=== PATIENT | male | born 1965 | race Hispanic/Latino ===

== ENCOUNTER 2023-08-10 13:34 | Inpatient (IN) | payer BC ==
[~2023-08-10] VITALS: Ht 170.2 cm; Wt 88.9 kg
[2023-08-10 14:07] LABS: BASOPHILS # (AUTO) 0.02 K/uL (0.00-0.20); BASOPHILS % (AUTO) 0.2 % (0.0-5.0); EOSINOPHILS # (AUTO) 0.15 K/uL (0.00-0.70); EOSINOPHILS % (AUTO) 1.6 % (0.0-8.0); HEMATOCRIT 44.5 % (42-54); IMMATURE GRANULOCYTE ABSOLUTE 0.02 K/uL (0-1); LYMPHOCYTES # (AUTO) 1.3 K/uL (1.0-4.8); LYMPHOCYTES % (AUTO) 13.9 % (21.0-51.0); MEAN CORPUSCULAR VOLUME 87.8 fL (79-99); MONOCYTES # (AUTO) 0.7 K/uL (0.1-1.0); MONOCYTES % (AUTO) 7.9 % (3.0-13.0); NEUTROPHILS % (AUTO) 76.2 % (40.0-77.0); PLATELET COUNT (AUTO) 263 K/uL (130-400); RED BLOOD CELL COUNT(AUTO) 5.07 MIL/uL (4.50-6.20); RED CELL DISTRIBUTION WIDTH 12.8 % (11.0-15.5); WHITE BLOOD COUNT (AUTO) 9.2 K/uL (4.8-10.8)
[2023-08-10 14:27] LABS: ALBUMIN 2.6 g/dL (3.5-5.0); BILIRUBIN,TOTAL 0.6 mg/dL (0.2-1.0); POTASSIUM 4.3 mmol/L (3.5-5.1); TOTAL PROTEIN, SERUM 6.9 g/dL (6.0-8.3)
[2023-08-10] MEDS ORDERED: FUROSEMIDE 40MG VIAL IV ONE (14:30)
[2023-08-10] MEDS ORDERED: NITROGLYCERIN 1GM OINT 1 INCH/1GM TD ONE (14:30)
[2023-08-10] MEDS ORDERED: ALBUTEROL 0.083% 2.5 MG/3 ML INH IH ONE (14:30)
[2023-08-10 14:42] LABS: B-TYPE NATRIURETIC PEPTIDE 857 pg/mL (0-100)
[2023-08-10 14:45] VITALS: PULSE 102; RESP 18
[2023-08-10 14:50] LABS: ABG BASE EXCESS 4.1 mmol/L (-2.0-3.0); ABG HCO3 28.4 mmol/L (21.0-28.0); ABG OXYGEN SATURATION 95.8 % (95.0-99.0); ABG PCO2 41 mmHg (35-48); ABG PH 7.454 (7.35-7.450); VENT MODE, BG RA (ROOM AIR)
[2023-08-10] MEDS ORDERED: INSULIN HUMULIN R 100 UNIT/ML 3ML SQ ONE (15:00)
[2023-08-10 17:17] VITALS: PULSE 102; RESP 20; O2SAT 96
[2023-08-10 17:18] LABS: INR 1.07 (0.85-1.15); PROTHROMBIN TIME 12.4 SEC (9.6-11.6)
[2023-08-10 17:20] LABS: PARTIAL THROMBOPLASTIN TIME 30.9 SEC (26.3-35.5)
[2023-08-10 17:39] LABS: MAGNESIUM 1.5 mg/dL (1.80-2.40)
[2023-08-10] MEDS ORDERED: GLUCAGON 1MG KIT 1 MG ML IM PRN (18:00)
[2023-08-10] MEDS ORDERED: INSULIN HUMULIN R 100 UNIT/ML 3ML SQ SCH (18:00)
[2023-08-10] MEDS ORDERED: DEXTROSE 50%-WATER 50 ML DISP.SYRIN IV PRN (18:00)
[2023-08-10 18:10] LABS: THYROID STIMULATING HORMONE 1.41 uIU/mL (0.36-3.74)
[2023-08-10] MEDS ORDERED: SODIUM CHLORIDE 3% FOR INHALATION 4 ML/AMP VIAL.NEB IH ONE ×2 (18:19→23:05)
[2023-08-10] MEDS ORDERED: MAGNESIUM 2GM PREMIX 50ML 50 ML IV ONE (18:23)
[2023-08-10] MEDS: CEFTRIAXONE 1G VIAL IVPB SCH (18:28)
[2023-08-10] MEDS: ASPIRIN 81MG CHEW TAB PO SCH (18:28)
[2023-08-10] MEDS: MAGNESIUM 2GM PREMIX 50ML 50 ML IV SCH (18:41)
[2023-08-10 19:00] VITALS: PULSE 109; RESP 19; O2SAT 98
[2023-08-10] MEDS: BUDESONIDE 0.5 MG/2 ML INH IH SCH (19:00)
[2023-08-10] MEDS ORDERED: IPRATROPIUM 0.5 MG/2.5 ML INH IH PRN (19:00)
[2023-08-10 19:43] LABS: SARS-CoV-2, RNA, NAAT NEGATIVE SARS CoV-2 (NEGATIVE)
[2023-08-10 19:52] LABS: INFLUENZA TYPE A Negative For Type A (NEGATIVE); INFLUENZA TYPE B Negative For Type B (NEGATIVE)
[2023-08-10] MEDS: FAMOTIDINE 20MG TAB PO SCH (20:25)
[2023-08-10] MEDS: ATORVASTATIN 40 MG TABLET PO SCH (20:25)
[2023-08-10] MEDS: FUROSEMIDE 40MG VIAL IV SCH (20:26)
[2023-08-10] MEDS: INSULIN HUMULIN R 100 UNIT/ML 3ML SQ SCH (20:56)
[2023-08-10] MEDS ORDERED: INSULIN GLARGINE 100 UNITS/ML 10 ML VIAL SQ SCH (21:00)
[2023-08-10 21:41] LABS: CREATININE 0.9 mg/dL (0.5-1.5); POTASSIUM 3.9 mmol/L (3.5-5.1)
[2023-08-10 21:48] VITALS: BP 115/80; PULSE 111; RESP 20
[2023-08-10] MEDS ORDERED: SITA1TAB6 PO (22:18)
[2023-08-10] MEDS ORDERED: ATOR20TA65 PO (22:18)
[2023-08-10] MEDS ORDERED: PIOG45TA64 PO (22:18)
[2023-08-10] MEDS ORDERED: GEMF600T89 PO (22:18)
[2023-08-10] MEDS ORDERED: LISI1TAB51 PO (22:18)
[2023-08-10] MEDS ORDERED: FAMO40TA7 PO (22:18)
[2023-08-10] MEDS ORDERED: LIRA0.6P SQ (22:18)
[2023-08-10 22:32] VITALS: O2SAT 98
[2023-08-10] MEDS ORDERED: POTASSIUM CHLORIDE 20MEQ/100ML 100 ML IV PRN (23:00)
[2023-08-10] MEDS ORDERED: POTASSIUM CHLORIDE 10% ELIXIR 20 MEQ/15 ML UDCUP PO PRN (23:00)
[2023-08-10 23:24] VITALS: BP 107/74; PULSE 115; RESP 18
[2023-08-11] VITALS (11 sets, daily range): BP systolic 95–127; BP diastolic 63–90; PULSE 81–113; RESP 17–22; O2SAT 96–97
[2023-08-11 04:56] LABS: BASOPHILS # (AUTO) 0.04 K/uL (0.00-0.20); BASOPHILS % (AUTO) 0.4 % (0.0-5.0); EOSINOPHILS % (AUTO) 3.2 % (0.0-8.0); HEMATOCRIT 41.1 % (42-54); IMMATURE GRANULOCYTE ABSOLUTE 0.03 K/uL (0-1); LYMPHOCYTES # (AUTO) 1.7 K/uL (1.0-4.8); LYMPHOCYTES % (AUTO) 18.2 % (21.0-51.0); MEAN CORPUSCULAR HEMOGLOBIN 28.6 pg (27.0-33.0); MEAN CORPUSCULAR HGB CONC 31.6 g/dL (32.0-36.0); MEAN CORPUSCULAR VOLUME 90.3 fL (79-99); MONOCYTES # (AUTO) 0.8 K/uL (0.1-1.0); NEUTROPHILS # (AUTO) 6.6 K/uL (1.8-7.7); NEUTROPHILS % (AUTO) 69.9 % (40.0-77.0); PLATELET COUNT (AUTO) 250 K/uL (130-400); RED BLOOD CELL COUNT(AUTO) 4.55 MIL/uL (4.50-6.20); RED CELL DISTRIBUTION WIDTH 12.8 % (11.0-15.5); WHITE BLOOD COUNT (AUTO) 9.5 K/uL (4.8-10.8)
[2023-08-11 05:10] LABS: ALBUMIN 2.3 g/dL (3.5-5.0); BILIRUBIN,TOTAL 0.3 mg/dL (0.2-1.0); MAGNESIUM 1.7 mg/dL (1.80-2.40); POTASSIUM 4.2 mmol/L (3.5-5.1); TOTAL PROTEIN, SERUM 6.4 g/dL (6.0-8.3)
[2023-08-11 05:47] LABS: B-TYPE NATRIURETIC PEPTIDE 563 pg/mL (0-100)
[2023-08-11] MEDS: CEFTRIAXONE 1G VIAL IVPB SCH ×2 (06:26→16:48)
[2023-08-11] MEDS: INSULIN HUMULIN R 100 UNIT/ML 3ML SQ SCH ×4 (06:26→20:26)
[2023-08-11] MEDS: BUDESONIDE 0.5 MG/2 ML INH IH SCH ×2 (07:17→19:00)
[2023-08-11] MEDS: FAMOTIDINE 20MG TAB PO SCH ×2 (09:57→20:22)
[2023-08-11] MEDS: Vitamin B Complex/Vit C/Folic Acid PO SCH (09:57)
[2023-08-11] MEDS: LINAGLIPTIN 5 MG TABLET PO SCH (09:57)
[2023-08-11] MEDS: LISINOPRIL 5 MG TABLET PO SCH (09:58)
[2023-08-11] MEDS: KCL 20 MEQ ERTAB PO SCH (09:58)
[2023-08-11] MEDS: DOXYCYCLINE HYCLATE 100 MG TABLET PO SCH ×2 (09:58→20:22)
[2023-08-11] MEDS: FUROSEMIDE 40MG VIAL IV SCH ×2 (09:59→20:24)
[2023-08-11] MEDS: ENOXAPARIN SODIUM 40 MG/0.4 ML SYRINGE SQ SCH (09:59)
[2023-08-11] MEDS: INSULIN GLARGINE 100 UNITS/ML 10 ML VIAL SQ SCH ×2 (10:09→20:25)
[2023-08-11] MEDS: ASPIRIN 81MG CHEW TAB PO SCH (16:49)
[2023-08-11] MEDS: ATORVASTATIN 40 MG TABLET PO SCH (20:22)
[2023-08-12] VITALS (9 sets, daily range): BP systolic 99–109; BP diastolic 66–78; PULSE 87–108; RESP 16–22; O2SAT 94–99
[2023-08-12] MEDS: CEFTRIAXONE 1G VIAL IVPB SCH (04:58)
[2023-08-12 05:16] LABS: BASOPHILS # (AUTO) 0.03 K/uL (0.00-0.20); BASOPHILS % (AUTO) 0.3 % (0.0-5.0); EOSINOPHILS # (AUTO) 0.41 K/uL (0.00-0.70); EOSINOPHILS % (AUTO) 4.7 % (0.0-8.0); HEMATOCRIT 42.8 % (42-54); IMMATURE GRANULOCYTE ABSOLUTE 0.03 K/uL (0-1); LYMPHOCYTES # (AUTO) 1.9 K/uL (1.0-4.8); MEAN CORPUSCULAR HEMOGLOBIN 28.8 pg (27.0-33.0); MEAN CORPUSCULAR HGB CONC 31.3 g/dL (32.0-36.0); MONOCYTES # (AUTO) 0.6 K/uL (0.1-1.0); MONOCYTES % (AUTO) 7.3 % (3.0-13.0); NEUTROPHILS # (AUTO) 5.7 K/uL (1.8-7.7); NEUTROPHILS % (AUTO) 65.4 % (40.0-77.0); PLATELET COUNT (AUTO) 258 K/uL (130-400); RED BLOOD CELL COUNT(AUTO) 4.65 MIL/uL (4.50-6.20); WHITE BLOOD COUNT (AUTO) 8.8 K/uL (4.8-10.8)
[2023-08-12 05:31] LABS: MAGNESIUM 1.7 mg/dL (1.80-2.40); POTASSIUM 4.1 mmol/L (3.5-5.1)
[2023-08-12] MEDS: MAGNESIUM 2GM PREMIX 50ML 50 ML IV SCH (05:46)
[2023-08-12 05:48] LABS: B-TYPE NATRIURETIC PEPTIDE 627 pg/mL (0-100)
[2023-08-12] MEDS: INSULIN HUMULIN R 100 UNIT/ML 3ML SQ SCH ×3 (05:48→17:29)
[2023-08-12] MEDS: BUDESONIDE 0.5 MG/2 ML INH IH SCH ×2 (06:26→18:30)
[2023-08-12] MEDS: INSULIN GLARGINE 100 UNITS/ML 10 ML VIAL SQ SCH ×2 (10:43→20:36)
[2023-08-12] MEDS: LINAGLIPTIN 5 MG TABLET PO SCH (10:44)
[2023-08-12] MEDS: Vitamin B Complex/Vit C/Folic Acid PO SCH (10:44)
[2023-08-12] MEDS: FUROSEMIDE 40MG VIAL IV SCH (10:44)
[2023-08-12] MEDS: KCL 20 MEQ ERTAB PO SCH (10:44)
[2023-08-12] MEDS: FAMOTIDINE 20MG TAB PO SCH ×2 (10:45→20:35)
[2023-08-12] MEDS: DOXYCYCLINE HYCLATE 100 MG TABLET PO SCH ×2 (10:45→20:35)
[2023-08-12] MEDS: LISINOPRIL 5 MG TABLET PO SCH (10:45)
[2023-08-12] MEDS: ENOXAPARIN SODIUM 40 MG/0.4 ML SYRINGE SQ SCH (10:46)
[2023-08-12] MEDS ORDERED: HONE15GE TP (12:39)
[2023-08-12] MEDS: ASPIRIN 81MG CHEW TAB PO SCH (17:30)
[2023-08-12] MEDS: FUROSEMIDE 40 MG TABLET PO SCH (17:30)
[2023-08-12] MEDS: CEFTRIAXONE 2GM VIAL IVPB SCH (17:30)
[2023-08-12] MEDS: ATORVASTATIN 40 MG TABLET PO SCH (20:35)
[2023-08-12] MEDS ORDERED: INSULIN HUMULIN R 100 UNIT/ML 3ML SQ SCH (21:00)
[2023-08-13] VITALS (11 sets, daily range): BP systolic 104–114; BP diastolic 70–79; PULSE 78–108; RESP 16–20; O2SAT 96–98
[2023-08-13 04:31] LABS: BASOPHILS # (AUTO) 0.04 K/uL (0.00-0.20); BASOPHILS % (AUTO) 0.5 % (0.0-5.0); EOSINOPHILS # (AUTO) 0.36 K/uL (0.00-0.70); EOSINOPHILS % (AUTO) 4.1 % (0.0-8.0); HEMATOCRIT 42.5 % (42-54); IMMATURE GRANULOCYTE ABSOLUTE 0.04 K/uL (0-1); LYMPHOCYTES # (AUTO) 2.2 K/uL (1.0-4.8); LYMPHOCYTES % (AUTO) 25.5 % (21.0-51.0); MEAN CORPUSCULAR HEMOGLOBIN 29.1 pg (27.0-33.0); MEAN CORPUSCULAR HGB CONC 32.2 g/dL (32.0-36.0); MEAN CORPUSCULAR VOLUME 90.2 fL (79-99); MONOCYTES # (AUTO) 0.8 K/uL (0.1-1.0); MONOCYTES % (AUTO) 9.3 % (3.0-13.0); NEUTROPHILS # (AUTO) 5.2 K/uL (1.8-7.7); NEUTROPHILS % (AUTO) 60.1 % (40.0-77.0); PLATELET COUNT (AUTO) 273 K/uL (130-400); RED BLOOD CELL COUNT(AUTO) 4.71 MIL/uL (4.50-6.20); RED CELL DISTRIBUTION WIDTH 13.1 % (11.0-15.5); WHITE BLOOD COUNT (AUTO) 8.7 K/uL (4.8-10.8)
[2023-08-13 04:58] LABS: ALBUMIN 2.6 g/dL (3.5-5.0); BILIRUBIN,TOTAL 0.3 mg/dL (0.2-1.0); MAGNESIUM 1.9 mg/dL (1.80-2.40); POTASSIUM 3.9 mmol/L (3.5-5.1); TOTAL PROTEIN, SERUM 6.8 g/dL (6.0-8.3)
[2023-08-13] MEDS: INSULIN HUMULIN R 100 UNIT/ML 3ML SQ SCH ×7 (06:29→21:00)
[2023-08-13] MEDS: BUDESONIDE 0.5 MG/2 ML INH IH SCH ×2 (06:40→18:43)
[2023-08-13] MEDS ORDERED: REGADENOSON 0.4 MG/5 ML PF SYG IVP ONE (07:00)
[2023-08-13] MEDS: Vitamin B Complex/Vit C/Folic Acid PO SCH (09:36)
[2023-08-13] MEDS: LINAGLIPTIN 5 MG TABLET PO SCH (09:36)
[2023-08-13] MEDS: KCL 20 MEQ ERTAB PO SCH (09:37)
[2023-08-13] MEDS: FAMOTIDINE 20MG TAB PO SCH ×2 (09:37→21:30)
[2023-08-13] MEDS: LISINOPRIL 5 MG TABLET PO SCH (09:37)
[2023-08-13] MEDS: DOXYCYCLINE HYCLATE 100 MG TABLET PO SCH ×2 (09:37→21:30)
[2023-08-13] MEDS: FUROSEMIDE 40 MG TABLET PO SCH (09:37)
[2023-08-13] MEDS: ENOXAPARIN SODIUM 40 MG/0.4 ML SYRINGE SQ SCH (09:38)
[2023-08-13] MEDS: INSULIN GLARGINE 100 UNITS/ML 10 ML VIAL SQ SCH ×2 (09:39→21:32)
[2023-08-13] MEDS: PHARMACY COMMUNICATION MISC SCH ×13 (11:30→23:30)
[2023-08-13] MEDS: SPIRONOLACTONE 25 MG TAB PO SCH (16:06)
[2023-08-13] MEDS ORDERED: FUROSEMIDE 40MG VIAL IV ONE (16:30)
[2023-08-13] MEDS ORDERED: FUROSEMIDE 40MG VIAL IV SCH (17:00)
[2023-08-13] MEDS: ASPIRIN 81MG CHEW TAB PO SCH (17:37)
[2023-08-13] MEDS: CEFTRIAXONE 2GM VIAL IVPB SCH (17:38)
[2023-08-13] MEDS: ATORVASTATIN 40 MG TABLET PO SCH (21:30)
[2023-08-13] MEDS: CARVEDILOL 3.125 MG TABLET PO SCH (21:31)
[2023-08-13] MEDS: FUROSEMIDE 40MG VIAL IV SCH (21:31)
[2023-08-14] VITALS (13 sets, daily range): BP systolic 100–128; BP diastolic 58–77; PULSE 77–110; RESP 16–20; O2SAT 95–97
[2023-08-14] MEDS: PHARMACY COMMUNICATION MISC SCH ×8 (00:30→21:00)
[2023-08-14] MEDS: INSULIN HUMULIN R 100 UNIT/ML 3ML SQ SCH ×7 (05:50→21:41)
[2023-08-14 06:28] LABS: CREATININE 0.9 mg/dL (0.5-1.5); MAGNESIUM 1.8 mg/dL (1.80-2.40); POTASSIUM 3.8 mmol/L (3.5-5.1)
[2023-08-14] MEDS: BUDESONIDE 0.5 MG/2 ML INH IH SCH ×2 (06:29→18:29)
[2023-08-14] MEDS: MAGNESIUM 2GM PREMIX 50ML 50 ML IV SCH (06:37)
[2023-08-14 07:08] LABS: BASOPHILS # (AUTO) 0.03 K/uL (0.00-0.20); BASOPHILS % (AUTO) 0.4 % (0.0-5.0); EOSINOPHILS # (AUTO) 0.32 K/uL (0.00-0.70); HEMATOCRIT 44.1 % (42-54); IMMATURE GRANULOCYTE ABSOLUTE 0.02 K/uL (0-1); LYMPHOCYTES # (AUTO) 1.8 K/uL (1.0-4.8); LYMPHOCYTES % (AUTO) 22.4 % (21.0-51.0); MEAN CORPUSCULAR HEMOGLOBIN 28.8 pg (27.0-33.0); MEAN CORPUSCULAR HGB CONC 31.7 g/dL (32.0-36.0); MEAN CORPUSCULAR VOLUME 90.7 fL (79-99); MONOCYTES # (AUTO) 0.6 K/uL (0.1-1.0); MONOCYTES % (AUTO) 7.6 % (3.0-13.0); NEUTROPHILS # (AUTO) 5.2 K/uL (1.8-7.7); NEUTROPHILS % (AUTO) 65.3 % (40.0-77.0); PLATELET COUNT (AUTO) 252 K/uL (130-400); RED BLOOD CELL COUNT(AUTO) 4.86 MIL/uL (4.50-6.20); RED CELL DISTRIBUTION WIDTH 13.2 % (11.0-15.5)
[2023-08-14 07:18] LABS: INR 1.07 (0.85-1.15); POTASSIUM 3.9 mmol/L (3.5-5.1); PROTHROMBIN TIME 12.4 SEC (9.6-11.6)
[2023-08-14 07:19] LABS: PARTIAL THROMBOPLASTIN TIME 31.5 SEC (26.3-35.5)
[2023-08-14 07:33] LABS: ALBUMIN 2.7 g/dL (3.5-5.0); BILIRUBIN,TOTAL 0.3 mg/dL (0.2-1.0); TOTAL PROTEIN, SERUM 6.9 g/dL (6.0-8.3)
[2023-08-14] MEDS: FAMOTIDINE 20MG TAB PO SCH ×2 (09:00→21:35)
[2023-08-14] MEDS: KCL 20 MEQ ERTAB PO SCH (09:00)
[2023-08-14] MEDS: DOXYCYCLINE HYCLATE 100 MG TABLET PO SCH ×2 (09:00→21:35)
[2023-08-14] MEDS: ENOXAPARIN SODIUM 40 MG/0.4 ML SYRINGE SQ SCH (09:00)
[2023-08-14] MEDS: Vitamin B Complex/Vit C/Folic Acid PO SCH (09:00)
[2023-08-14] MEDS: INSULIN GLARGINE 100 UNITS/ML 10 ML VIAL SQ SCH ×2 (09:00→21:40)
[2023-08-14] MEDS: CARVEDILOL 3.125 MG TABLET PO SCH ×2 (09:00→21:35)
[2023-08-14] MEDS: LINAGLIPTIN 5 MG TABLET PO SCH (09:00)
[2023-08-14] MEDS: SPIRONOLACTONE 25 MG TAB PO SCH (09:00)
[2023-08-14] MEDS: FUROSEMIDE 40MG VIAL IV SCH (09:20)
[2023-08-14] MEDS: ASPIRIN 81MG CHEW TAB PO SCH (16:59)
[2023-08-14] MEDS: BUMETANIDE 2.5MG/10ML (DRIP) 40 ML IV SCH ×2 (17:22→20:35)
[2023-08-14] MEDS: MILRINONE-D5W 20 MG/100 ML 100 ML IV SCH (17:23)
[2023-08-14] MEDS: CEFTRIAXONE 2GM VIAL IVPB SCH (18:01)
[2023-08-14] MEDS ORDERED: COMPOUND IV MISC 1 EACH IVSOLN MISC PRN (20:00)
[2023-08-14] MEDS ORDERED: SACUBITRIL/VALSARTAN 1 EACH TABLET PO SCH (21:00)
[2023-08-14] MEDS: ATORVASTATIN 40 MG TABLET PO SCH (21:35)
[2023-08-15] VITALS (21 sets, daily range): BP systolic 94–116; BP diastolic 55–78; PULSE 50–108; RESP 18–24; O2SAT 96–97
[2023-08-15] MEDS: MILRINONE-D5W 20 MG/100 ML 100 ML IV SCH ×2 (01:37→06:52)
[2023-08-15 03:42] LABS: HEMATOCRIT 42.5 % (42-54); MEAN CORPUSCULAR HEMOGLOBIN 28.8 pg (27.0-33.0); MEAN CORPUSCULAR HGB CONC 32.2 g/dL (32.0-36.0); MEAN CORPUSCULAR VOLUME 89.3 fL (79-99); RED BLOOD CELL COUNT(AUTO) 4.76 MIL/uL (4.50-6.20)
[2023-08-15 03:59] LABS: POTASSIUM 3.3 mmol/L (3.5-5.1)
[2023-08-15] MEDS ORDERED: POTASSIUM CHLORIDE 10MEQ/100ML 100 ML IV PRN (04:30)
[2023-08-15] MEDS: INSULIN HUMULIN R 100 UNIT/ML 3ML SQ SCH ×7 (06:14→20:19)
[2023-08-15] MEDS: BUDESONIDE 0.5 MG/2 ML INH IH SCH ×2 (06:53→18:39)
[2023-08-15] MEDS ORDERED: FENTANYL CITRATE PF 50 MCG/1 ML 2ML VIAL ONE (07:14)
[2023-08-15] MEDS ORDERED: LIDOCAINE HCL 400MG/20ML VIAL ONE (07:14)
[2023-08-15] MEDS ORDERED: BIVALIRUDIN 250 MG/VIAL IV ONE (07:14)
[2023-08-15] MEDS ORDERED: MIDAZOLAM HCL 1 MG/ML 2ML VIAL ONE (07:14)
[2023-08-15] MEDS ORDERED: IOHEXOL-350 50ML VIAL IV ONE (07:15)
[2023-08-15] MEDS ORDERED: IOHEXOL-350 75 ML VIAL IV ONE (07:15)
[2023-08-15] MEDS: ENOXAPARIN SODIUM 40 MG/0.4 ML SYRINGE SQ SCH (09:00)
[2023-08-15] MEDS: FAMOTIDINE 20MG TAB PO SCH ×2 (09:00→20:10)
[2023-08-15] MEDS: SPIRONOLACTONE 25 MG TAB PO SCH (09:00)
[2023-08-15] MEDS: Vitamin B Complex/Vit C/Folic Acid PO SCH (09:00)
[2023-08-15] MEDS: DOXYCYCLINE HYCLATE 100 MG TABLET PO SCH ×2 (09:00→20:09)
[2023-08-15] MEDS: LINAGLIPTIN 5 MG TABLET PO SCH (09:00)
[2023-08-15] MEDS: CARVEDILOL 3.125 MG TABLET PO SCH ×2 (09:00→20:09)
[2023-08-15] MEDS: KCL 20 MEQ ERTAB PO SCH (09:00)
[2023-08-15] MEDS: INSULIN GLARGINE 100 UNITS/ML 10 ML VIAL SQ SCH ×2 (12:09→20:18)
[2023-08-15] MEDS: KCL 20 MEQ ERTAB PO PRN ×3 (14:57→20:09)
[2023-08-15] MEDS: ASPIRIN 81MG CHEW TAB PO SCH (16:28)
[2023-08-15] MEDS: CEFTRIAXONE 2GM VIAL IVPB SCH (18:10)
[2023-08-15] MEDS: ATORVASTATIN 40 MG TABLET PO SCH (20:09)
[2023-08-15] MEDS: TORSEMIDE 20 MG TAB PO SCH (20:09)
[2023-08-15] MEDS: SACUBITRIL/VALSARTAN 1 EACH TABLET PO SCH (20:10)
[2023-08-16] VITALS (9 sets, daily range): BP systolic 95–120; BP diastolic 61–85; PULSE 78–106; RESP 18–20; O2SAT 98–100
[2023-08-16 04:07] LABS: ALBUMIN 2.7 g/dL (3.5-5.0); BILIRUBIN,TOTAL 0.6 mg/dL (0.2-1.0); CREATININE 1.1 mg/dL (0.5-1.5); POTASSIUM 4.4 mmol/L (3.5-5.1); TOTAL PROTEIN, SERUM 7.1 g/dL (6.0-8.3)
[2023-08-16 04:47] LABS: HEMATOCRIT 45.2 % (42-54); MEAN CORPUSCULAR HGB CONC 32.5 g/dL (32.0-36.0); MEAN CORPUSCULAR VOLUME 89.2 fL (79-99); RED BLOOD CELL COUNT(AUTO) 5.07 MIL/uL (4.50-6.20); RED CELL DISTRIBUTION WIDTH 13.2 % (11.0-15.5); WHITE BLOOD COUNT (AUTO) 7.8 K/uL (4.8-10.8)
[2023-08-16] MEDS: INSULIN HUMULIN R 100 UNIT/ML 3ML SQ SCH ×6 (05:38→17:32)
[2023-08-16] MEDS: BUDESONIDE 0.5 MG/2 ML INH IH SCH ×2 (07:14→18:53)
[2023-08-16] MEDS: SACUBITRIL/VALSARTAN 1 EACH TABLET PO SCH (08:33)
[2023-08-16] MEDS: ENOXAPARIN SODIUM 40 MG/0.4 ML SYRINGE SQ SCH (08:33)
[2023-08-16] MEDS: SPIRONOLACTONE 25 MG TAB PO SCH (08:36)
[2023-08-16] MEDS: KCL 20 MEQ ERTAB PO SCH (08:36)
[2023-08-16] MEDS: CARVEDILOL 3.125 MG TABLET PO SCH (08:36)
[2023-08-16] MEDS: Vitamin B Complex/Vit C/Folic Acid PO SCH (08:36)
[2023-08-16] MEDS: LINAGLIPTIN 5 MG TABLET PO SCH (08:37)
[2023-08-16] MEDS: TORSEMIDE 20 MG TAB PO SCH (08:37)
[2023-08-16] MEDS: FAMOTIDINE 20MG TAB PO SCH (08:37)
[2023-08-16] MEDS ORDERED: SPIR25TA6 PO (09:04)
[2023-08-16] MEDS ORDERED: TORS20TA4 PO (09:04)
[2023-08-16] MEDS ORDERED: CARV3.1262 PO (09:04)
[2023-08-16] MEDS ORDERED: POTA-192 PO (09:04)
[2023-08-16] MEDS ORDERED: ATOR40TA69 PO (09:04)
[2023-08-16] MEDS ORDERED: ASPI-1005 PO (09:04)
[2023-08-16] MEDS ORDERED: SACU1TAB PO (09:04)
[2023-08-16] MEDS: INSULIN GLARGINE 100 UNITS/ML 10 ML VIAL SQ SCH (09:08)
[2023-08-16 12:13] LABS: FREE KAPPA LIGHT CHAINS,S 51.3 mg/L (3.3-19.4)
[2023-08-16] MEDS ORDERED: INSLAN SQ (13:48)
[2023-08-16] MEDS ORDERED: DAPA10TA PO (15:18)
[2023-08-16 16:11] LABS: COXSACKIE A16 IGM Negative titer (Neg:<1:10); COXSACKIE A24 IGM Negative titer (Neg:<1:10); COXSACKIE A7 IGM Negative titer (Neg:<1:10); COXSACKIE A9 IGM Negative titer (Neg:<1:10)
[2023-08-16] MEDS: ASPIRIN 81MG CHEW TAB PO SCH (17:36)
== END 2023-08-16 19:17 | disposition home or self-care (01) | DRG 286 ==
LOC: EDH 13:34 → EDHIP 16:53 → 4DH 21:38 → 2AH 08-14 17:41
PROVIDERS: ADMIT Internal Medicine; ATTEND Internal Medicine
PROC: 4A023N8 Measurement of Cardiac Sampling and Pressure, Bilateral, Percutaneous Approach (ICD-10-PCS; principal; 2023-08-15)
PROC: B2111ZZ Fluoroscopy of Multiple Coronary Arteries using Low Osmolar Contrast (ICD-10-PCS; 2023-08-15)
PROC: B2151ZZ Fluoroscopy of Left Heart using Low Osmolar Contrast (ICD-10-PCS; 2023-08-15)
PROC: B41F1ZZ Fluoroscopy of Right Lower Extremity Arteries using Low Osmolar Contrast (ICD-10-PCS; 2023-08-15)
DX: I11.0 Hypertensive heart disease with heart failure (principal); I50.41 Acute combined systolic (congestive) and diastolic (congestive) heart failure; J18.9 Pneumonia, unspecified organism; J96.01 Acute respiratory failure with hypoxia; I25.110 Atherosclerotic heart disease of native coronary artery with unstable angina pectoris; E83.42 Hypomagnesemia; Z20.822 Contact with and (suspected) exposure to COVID-19; J20.9 Acute bronchitis, unspecified; I87.8 Other specified disorders of veins; Z86.16 Personal history of COVID-19; E66.09 Other obesity due to excess calories; E78.2 Mixed hyperlipidemia; I27.20 Pulmonary hypertension, unspecified; I42.0 Dilated cardiomyopathy; J45.909 Unspecified asthma, uncomplicated; Z79.4 Long term (current) use of insulin; Z79.84 Long term (current) use of oral hypoglycemic drugs; Z79.899 Other long term (current) drug therapy; Z82.49 Family history of ischemic heart disease and other diseases of the circulatory system; Z87.891 Personal history of nicotine dependence; Z91.148 Patient's other noncompliance with medication regimen for other reason; Z68.30 Body mass index [BMI] 30.0-30.9, adult
CPT/HCPCS: 36415; 36600; 71045; 78452; 80048; 80053; 80061; 82010; 82550; 82728; 82803; 82948; 83036; 83735; 83874; 83880; 83883; 84145; 84443; 84484; 85025; 85027; 85610; 85651; 85730; 86140; 86334; 86658; 86701; 87071; 87205; 87390; 87635; 87804; 93005; 93017; 93306; 93356; 93460; 93970; 94640; 94664; 96374; 99156; 99157; A9500; C1760; C1769; C1894; G0378; J0583; J0696; J1644; J1650; J1815; J1940; J2250; J2260; J2785; J3010; J3475; J3480; J3490; Q9967; Q9965

== ENCOUNTER → 2023-08-31 | Outpatient (CLI) | payer BC ==
[~2023-08-31] MED LIST: ASPI-1005 PO; ATOR40TA69 PO; CARV3.1262 PO; DAPA10TA PO; FAMO40TA7 PO; GEMF600T89 PO; HONE15GE TP; INSLAN SQ; LIRA0.6P SQ; POTA-192 PO; SACU1TAB PO; SITA1TAB6 PO; SPIR25TA6 PO; TORS20TA4 PO
[2023-08-31 12:11] LABS: ALBUMIN 3.7 g/dL (3.5-5.0); BILIRUBIN,TOTAL 0.9 mg/dL (0.2-1.0); CREATININE 1.2 mg/dL (0.5-1.5); POTASSIUM 4.2 mmol/L (3.5-5.1); TOTAL PROTEIN, SERUM 8.2 g/dL (6.0-8.3)
== END | disposition home or self-care (01) ==
LOC: LAB 10:51
PROVIDERS: ATTEND Internal Medicine Cardiovascular Disease
DX: I50.22 Chronic systolic (congestive) heart failure (principal)
CPT/HCPCS: 36415; 80053

== ENCOUNTER → 2023-09-27 | Outpatient (CLI) | payer BC ==
[2023-09-27 16:34] LABS: CREATININE 1.1 mg/dL (0.5-1.5); POTASSIUM 3.8 mmol/L (3.5-5.1)
== END | disposition home or self-care (01) ==
LOC: LAB 10:00
PROVIDERS: ATTEND Nurse Practitioner Acute Care
DX: I50.22 Chronic systolic (congestive) heart failure (principal)
CPT/HCPCS: 36415; 80048; 83880

== ENCOUNTER → 2023-12-03 | Outpatient (CLI) | payer BC | END | disposition home or self-care (01) | LOC: RAH 13:13 | PROVIDERS: ATTEND Internal Medicine Cardiovascular Disease | DX: I42.8 Other cardiomyopathies (principal) | CPT/HCPCS: 93306; 93356 ==

== ENCOUNTER → 2025-11-03 | Outpatient (CLI) | payer BC | END | disposition home or self-care (01) | LOC: WHH 08:22 | PROVIDERS: ATTEND Family Medicine | DX: S81.802A Unspecified open wound, left lower leg, initial encounter (principal); E11.622 Type 2 diabetes mellitus with other skin ulcer; L97.822 Non-pressure chronic ulcer of other part of left lower leg with fat layer exposed; I10 Essential (primary) hypertension; W19.XXXA Unspecified fall, initial encounter; Y93.89 Activity, other specified; Y92.89 Other specified places as the place of occurrence of the external cause; Y99.8 Other external cause status | CPT/HCPCS: 99215; A4450 ==

== ENCOUNTER → 2025-11-10 | Outpatient (CLI) | payer BC | END | disposition home or self-care (01) | LOC: WHH 08:56 | PROVIDERS: ATTEND Family Medicine | DX: S81.802D Unspecified open wound, left lower leg, subsequent encounter (principal); E11.622 Type 2 diabetes mellitus with other skin ulcer; L97.828 Non-pressure chronic ulcer of other part of left lower leg with other specified severity; I10 Essential (primary) hypertension; W19.XXXD Unspecified fall, subsequent encounter | CPT/HCPCS: 99214 ==